=== PATIENT | male | born 1980 | race Two or more races ===

== ENCOUNTER 2019-12-28 00:36 | Emergency (ER) | payer OTHER ==
[~2019-12-28] VITALS: Ht 182.9 cm; Wt 81.6 kg
--- NOTE | 2019-12-28 01:12 | NUR ---
PT WAS BIBS FOR C/O SI. PT REPORTED HEARING VOICES AND PLANNING TO JUMP IN TO TRAFFIC. PT AMBULATORY TO BED 15. URINE COLLECTED . PT WAS GOWNED UP, ALL BELONGINGS WERE TAKEN AWAY AND PLACED IN THE SAFE LOCKER. VSS. SECURITY WAS CALLED TO WAND THE PT. PT REMAINED ON CLOSE SUPERVISION AND SAFETY . SI PRECAUTION. WILL CONT TO MONITOR
[2019-12-28 01:34] LABS: BASOPHILS # (AUTO) 0.1 /CMM (0.0-0.2); BASOPHILS % (AUTO) 0.8 % (0.0-2.0); EOSINOPHILS % (AUTO) 2.2 % (0.0-6.0); HEMATOCRIT 45 % (39-51); HEMOGLOBIN 15.2 g/dL (13.5-17.5); LYMPHOCYTES % (AUTO) 31.8 % (20.0-44.0); MEAN CORPUSCULAR HGB CONC 34 g/dl (31.0-36.0); MEAN CORPUSCULAR VOLUME 93 fL (80-96); MONOCYTES # (AUTO) 0.7 /CMM (0.1-1.30); MONOCYTES % (AUTO) 7.4 % (2.0-12.0); NEUTROPHILS # (AUTO) 5.4 /CMM (1.8-8.9); NEUTROPHILS % (AUTO) 57.8 % (43.0-81.0); PLATELET COUNT (AUTO) 279 /CMM (150-450); RED BLOOD CELL COUNT(AUTO) 4.86 MIL/uL (4.5-6.0); WHITE BLOOD COUNT (AUTO) 9.4 K/uL (4.3-11.0)
[2019-12-28 01:41] LABS: CALCIUM, SERUM 9.1 mg/dL (8.5-10.1); CARBON DIOXIDE 31 mmol/L (21-32); CHLORIDE 102 mmol/L (98-107); GLUCOSE 105 mg/dL (74-106); POTASSIUM 3.5 mmol/L (3.5-5.1); SODIUM SERUM 140 mmol/L (136-145); UREA NITROGEN, BLOOD 23 mg/dL (7-18)
[2019-12-28 01:47] LABS: ALANINE AMINOTRANSFERASE 20 U/L (12-78); ALBUMIN 4.3 g/dL (3.4-5.0); ALCOHOL, BLOOD < 3 mg/dL (0-0); ALKALINE PHOSPHATASE 53 U/L (46-116); ASPARTATE AMINOTRANSFERASE 11 U/L (15-37); BILIRUBIN,DIRECT 0.3 mg/dL (0.0-0.2); BILIRUBIN,TOTAL 2.3 mg/dL (0.2-1.0); TOTAL PROTEIN, SERUM 7.4 g/dL (6.4-8.2)
[2019-12-28 01:50] LABS: ACETAMINOPHEN < 2 ug/ml (10-30); SALICYLATE < 2.0 mg/dL (2.8-20.0)
--- NOTE | 2019-12-28 02:25 | NUR ---
PT RESTING COMFORTABLY IN BED. VSS. NO ACUTE DISTRESS NOTED. WILL CONTINUE TO MONITOR
[2019-12-28 02:27] LABS: APPEARANCE,URINE SL CLOUDY (CLEAR); BILIRUBIN,URINE SMALL (NEGATIVE); BLOOD, URINE NEGATIVE Ery/uL (NEGATIVE); COLOR,URINE YELLOW (YELLOW); KETONES,URINE NEGATIVE (NEGATIVE); LEUKOCYTE ESTERASE ,URINE NEGATIVE (NEGATIVE); NITRITE, URINE NEGATIVE (NEGATIVE); PROTEIN,URINE 30 mg/dl (NEGATIVE); UGLUCOSE NEGATIVE (NEGATIVE)
[2019-12-28 02:40] LABS: BACTERIA,URINE None seen /HPF (None Seen); MUCUS,URINE Many /LPF (None Seen); RBC,URINE 0-2 /HPF (0-2); SQUAMOUS EPITHELIAL CELL,UR Few /HPF (None Seen); WBC,URINE 0-2 /HPF (0-3)
--- NOTE | 2019-12-28 05:40 | NUR ---
PT ASLPEEP.VSS. NO ACUTE DISTRESS NOTED. WILL CONTINUE TO MONITOR
--- NOTE | 2019-12-28 08:46 | NUR ---
BREAKFAST TRAY PROVIDED, TOLERATING PO WELL.
--- NOTE | 2019-12-28 09:00 | NUR ---
CALLED ION AT [facility], STILL WAITING ON INSURANCE AUTH,A BED IS AVAILABLE
--- NOTE | 2019-12-28 10:03 | NUR ---
MARGI HAMILTON AT BEDSIDE
--- NOTE | 2019-12-28 10:30 | NUR ---
SE CONSULT: Motor Analyst conducted social services director consult to assess pt reporting suicidal ideation. SW consulted with pt's RN, Will prior to consult. SW met with pt at bedside to conduct consult. Pt was drowsy and oriented to person and situation only. He was unsure of which hospital he was at, and unsure of the date; SW clarified. Pt reported he currently lives with his father, but he is "not comfortable" there and would like to go to a "rehab" eventually. Pt did not want to provide father's address. Pt reported he is feeling suicidal with a plan to jump in front of a car. Pt reported he would like to be referred to an inpatient psychiatric placement on voluntary status. Pt is agreeable to SW sending a referral to [facility]. Pt reported he is actively experiencing audio command hallucinations telling him to "hurt himself," and that he is "not safe." SW provided emotional support and assured the pt he was in a safe setting. Pt reported he carries a diagnosis of Schizophrenia and follows a psychotropic medication regimen of Depakote and Risperdal. Pt reported his last inpatient psychiatric hospitalization was 2-3 weeks ago at [facility], where he was prescribed psychotropics. Pt reported he does not have an assigned psychiatrist or mental health clinic at this time. SW provided the pt with a list of behavioral health clinics and providers in the [facility] area. Pt reported he receives $900/month on SSI benefits. Pt denied any drug or alcohol use. MARGI faxed clinicals to [facility] ([phone]) for voluntary inpatient psychiatric placement. Aforementioned information endorsed to pt's nurse, Will.
--- NOTE | 2019-12-28 11:17 | NUR ---
GOT A CALL FROM [place] FROM [facility]. PT HAS BEEN ACCEPTED. PT GOING TO UNIT 2. NUMBER FOR REPORT. [phone] JOHNSON AND DR. OCAMPO ACCEPTING.
--- NOTE | 2019-12-28 11:25 | NUR ---
REPORT GIVEN TO VERONICA RODRÍGUEZ OF [facility] FOR [facility].
[2019-12-28] MEDS ORDERED: OLANZAPINE 5 MG TABLET PO ONE (11:30)
[2019-12-28] MEDS ORDERED: OLANZAPINE 5 MG TABLET ONE (11:31)
--- NOTE | 2019-12-28 11:39 | NUR ---
CALLED [facility] FOR TRANSPORT TO [facility]. WILL CALL BACK WITH COMPANY NAME AND ETA. RESERVATION NUMBER [id number].
--- NOTE | 2019-12-28 11:54 | NUR ---
[facility] 1300.
--- NOTE | 2019-12-28 13:41 | NUR ---
PATIENT IN BED ASLEEP, EASILY AROUSABLE BY VOICE. HOOKED TO MONITOR, WILL CONTINUE TO MONITOR ACCORDINGLY.
--- NOTE | 2019-12-28 13:42 | NUR ---
RECIEVED A CALL FROM [facility]. THEY ARE GOING TO BE DELAYED 20 MINUTES.
[2019-12-28 14:01] VITALS: BP 136/87
--- NOTE | 2019-12-28 14:05 | NUR ---
REPORT GIVEN TO EMT FOR PT TRANSFER TO [facility].
--- NOTE | 2019-12-28 14:11 | NUR ---
Patient picked up by [facility] in stable condition. Patient will be brought to [facility]. Clinicals copy provided to EMT to be given to the facility.
== END 2019-12-28 14:13 ==
LOC: ER 00:38
DX: R45.851 Suicidal ideations (principal); G40.909 Epilepsy, unspecified, not intractable, without status epilepticus; Z59.0 Homelessness
CPT/HCPCS: 36415; 80048; 80076; 80164; 80305; 80307; 80329; 81001; 85025; 99285; G0480; 81000-TC